=== PATIENT | female | born 1950 | race Two or more races ===

== ENCOUNTER 2017-06-01 19:26 | Emergency (ER) | payer OTHER, MEDICARE ==
[~2017-06-01] VITALS: Ht 157.5 cm; Wt 92.7 kg
[~2017-06-01 19:26] MED LIST: AMLODIPINE BESYL5 MG PO; ARNUITY ELLIP100 MCG IH; ATENOLOL50 MG PO; AUGMENTIN875 MG PO; BUMETANIDE1 MG PO; CRESTOR20 MG PO; DIOVAN320 MG PO; GEMFIBROZIL600 MG PO; IMDUR120 MG PO; LEXAPRO20 MG PO; METFORMIN HCL1000 MG PO; MEVACOR20 MG PO; NITROSTAT0.4 MG SL; NOVOLIN N100 UNITS/ SC; PLAVIX75 MG PO; PROTONIX40 MG PO; SINGULAIR10 MG PO; SYMBICORT60 INHALAT IH; TIROSINT112 MCG PO; ZETIA10 MG PO
[2017-06-01 22:44] VITALS: BP 135/70
== END 2017-06-01 22:45 | disposition home or self-care (01) ==
LOC: EME 19:26
DX: S00.03XA Contusion of scalp, initial encounter (principal); S09.90XA Unspecified injury of head, initial encounter; W07.XXXA Fall from chair, initial encounter; Z79.82 Long term (current) use of aspirin; Z79.01 Long term (current) use of anticoagulants; E11.9 Type 2 diabetes mellitus without complications; Z79.84 Long term (current) use of oral hypoglycemic drugs; I10 Essential (primary) hypertension
CPT/HCPCS: 70450; 99281; 99284

== ENCOUNTER → 2017-06-12 | Outpatient (CLI) | payer OTHER, MEDICARE | END | disposition home or self-care (01) | LOC: NUC 10:00 | DX: Z96.653 Presence of artificial knee joint, bilateral (principal); R93.7 Abnormal findings on diagnostic imaging of other parts of musculoskeletal system | CPT/HCPCS: 78315; A9503 ==

== ENCOUNTER 2017-11-20 20:09 | Inpatient (IN) | payer OTHER, MEDICARE ==
[~2017-11-20] VITALS: Ht 157.5 cm; Wt 93.7 kg
[2017-11-20 21:51] LABS: BASOPHIL (%) 0.9 % (0-1); BASOPHIL COUNT 0.1 K/uL (0-0.1); EOSINOPHIL COUNT 0.5 K/uL (0-0.3); HEMATOCRIT 36.3 % (36.0-46.0); HEMOGLOBIN 12.2 G/DL (11.9-15.5); IMMATURE GRANULOCYTE (%) 0.6 % (0.0-0.7); LYMPHOCYTE (%) 21.3 % (15-42); LYMPHOCYTE COUNT 1.9 K/uL (1.0-2.8); MCH 27.7 PG (29.0-34.0); MCHC 33.6 G/DL (30.0-36.0); MCV 82.5 FL (83-99); MONOCYTE (%) 9.8 % (3-12); MONOCYTE COUNT 0.9 K/uL (0-0.8); NEUTROPHIL (%) 62.4 % (45-76); NEUTROPHIL COUNT 5.6 K/uL (1.8-6.4); PLATELET COUNT 341 K/uL (156-360); RBC DIS.WIDTH-CV 15.6 % (11.8-14.6); RBC DIS.WIDTH-SD 46.1 % (39-53); WHITE BLOOD COUNT 8.9 K/uL (4.1-10.2)
[2017-11-20] MEDS ORDERED: CRESTOR20 MG PO (21:54)
[2017-11-20] MEDS ORDERED: BUMEX1 MG PO (21:55)
[2017-11-20] MEDS ORDERED: DIOVAN320 MG PO (21:55)
[2017-11-20] MEDS ORDERED: NORVASC10 MG PO (21:55)
[2017-11-20] MEDS ORDERED: LEXAPRO20 MG PO (21:55)
[2017-11-20] MEDS ORDERED: GLUCOPHAGE1000 MG PO (21:56)
[2017-11-20] MEDS ORDERED: PLAVIX75 MG PO (21:56)
[2017-11-20] MEDS ORDERED: PROTONIX40 MG PO (21:56)
[2017-11-20] MEDS ORDERED: ASPIR 8181 M1 PO (21:56)
[2017-11-20] MEDS ORDERED: LEVO-T88 MCG PO (21:57)
[2017-11-20] MEDS ORDERED: LOPID600 MG PO (21:57)
[2017-11-20] MEDS ORDERED: IMDUR60 MG PO (21:57)
[2017-11-20] MEDS ORDERED: VITAMIN D32000 UNI1 PO (21:58)
[2017-11-20] MEDS ORDERED: SINGULAIR10 MG PO (21:58)
[2017-11-20] MEDS ORDERED: ZYLOPRIM300 MG PO (21:58)
[2017-11-20] MEDS ORDERED: COLCRYS0.6 MG PO (21:58)
[2017-11-20] MEDS ORDERED: COENZYME Q10100 M1 PO (21:59)
[2017-11-20] MEDS ORDERED: FOLIC ACID0.4 MG PO (21:59)
[2017-11-20] MEDS ORDERED: NOVOLOG PE100 UNITS/ SC (22:00)
[2017-11-20] MEDS ORDERED: DOMP10T PO (22:00)
[2017-11-20] MEDS ORDERED: TOUJEO SOL300 UNIT/1 SC (22:00)
[2017-11-20] MEDS ORDERED: NITROSTAT0.4 MG SL (22:01)
[2017-11-20] MEDS ORDERED: FLONASE16 G1 BOTH NARES (22:01)
[2017-11-20] MEDS ORDERED: PROAIR HFA8.5 GM IH (22:01)
[2017-11-20] MEDS ORDERED: TAMIFLU75 MG PO (22:02)
[2017-11-20] MEDS ORDERED: ADVIL200 MG PO (22:02)
[2017-11-20 22:04] LABS: CHLORIDE 105 mEq/L (99-109); POTASSIUM 3.8 mEq/L (3.7-5.4); SODIUM 141 mEq/L (136-147)
[2017-11-20] MEDS ORDERED: VALTREX1000 MG PO (22:04)
[2017-11-20] MEDS ORDERED: MAGIC MOUTHWASH MM (22:04)
[2017-11-20 22:06] LABS: GLUCOSE 88 mg/dL (70-99)
[2017-11-20 22:10] LABS: CREATININE 1.1 mg/dL (0.6-1.3); GFR ESTIMATE (CALCULATED) 53 mL/min/
[2017-11-20 22:11] LABS: UREA NITROGEN (BUN) 15 mg/dL (9-23)
[2017-11-20 22:23] LABS: ERTH.SED.RATE 64 MM/HR (0-30)
[2017-11-21 05:39] VITALS: BP 170/96
[2017-11-21 05:45] LABS: CHLORIDE 106 MEQ/L (99-109); CREATININE 0.9 MG/DL (0.6-1.3); GFR ESTIMATE (CALCULATED) > 59 mL/min/; POTASSIUM 4.2 MEQ/L (3.7-5.4); SODIUM 139 MEQ/L (136-147); UREA NITROGEN (BUN) 14 mg/dL (9-23)
[2017-11-21 05:47] LABS: GLUCOSE 143 mg/dL (70-99)
[2017-11-21 08:39] VITALS: BP 186/87
[2017-11-21 12:10] VITALS: BP 178/81
[2017-11-21 17:44] VITALS: BP 184/83
[2017-11-21 19:12] VITALS: BP 182/84
[2017-11-21 23:50] VITALS: BP 196/93
[2017-11-22] VITALS (10 sets, daily range): BP systolic 149–204; BP diastolic 65–93
[2017-11-22 05:27] LABS: BASOPHIL (%) 0.8 % (0-1); BASOPHIL COUNT 0.1 K/uL (0-0.1); EOSINOPHIL (%) 0 % (0-5); HEMATOCRIT 35.2 % (36.0-46.0); HEMOGLOBIN 11.4 G/DL (11.9-15.5); IMMATURE GRANULOCYTE (%) 0.5 % (0.0-0.7); LYMPHOCYTE COUNT 1.5 K/uL (1.0-2.8); MCH 26.8 PG (29.0-34.0); MCHC 32.4 G/DL (30.0-36.0); MCV 82.6 FL (83-99); MONOCYTE (%) 6.3 % (3-12); MONOCYTE COUNT 0.6 K/uL (0-0.8); NEUTROPHIL (%) 77.4 % (45-76); NEUTROPHIL COUNT 7.8 K/uL (1.8-6.4); PLATELET COUNT 377 K/uL (156-360); RED BLOOD COUNT 4.26 M/uL (3.80-5.20); WHITE BLOOD COUNT 10.1 K/uL (4.1-10.2)
[2017-11-22 05:55] LABS: ALBUMIN 3.9 G/DL (3.2-4.8); ALKALINE PHOSPHATASE 78 IU/L (3-129); ALT (GPT) 22 IU/L (3-49); AST (GOT) 27 IU/L (2-34); CHLORIDE 107 MEQ/L (99-109); CREATININE 0.9 MG/DL (0.6-1.3); GFR ESTIMATE (CALCULATED) > 59 mL/min/; GLUCOSE 163 mg/dL (70-99); MAGNESIUM 1.5 mg/dl (1.3-2.7); SODIUM 143 MEQ/L (136-147); TOTAL BILIRUBIN 0.5 MG/DL (0.0-1.0); TOTAL PROTEIN 6.6 G/DL (6.4-8.3); UREA NITROGEN (BUN) 15 mg/dL (9-23)
[2017-11-22 16:14] LABS: BASOPHIL (%) 1.1 % (0-1); BASOPHIL COUNT 0.1 K/uL (0-0.1); EOSINOPHIL (%) 0.5 % (0-5); EOSINOPHIL COUNT 0.1 K/uL (0-0.3); HEMATOCRIT 36.1 % (36.0-46.0); IMMATURE GRANULOCYTE (%) 0.5 % (0.0-0.7); LYMPHOCYTE COUNT 1.4 K/uL (1.0-2.8); MCH 27.3 PG (29.0-34.0); MCHC 33.2 G/DL (30.0-36.0); MONOCYTE (%) 15.1 % (3-12); MONOCYTE COUNT 1.6 K/uL (0-0.8); NEUTROPHIL (%) 69.8 % (45-76); NEUTROPHIL COUNT 7.3 K/uL (1.8-6.4); PLATELET COUNT 398 K/uL (156-360); RBC DIS.WIDTH-CV 15.1 % (11.8-14.6); RBC DIS.WIDTH-SD 45.4 % (39-53); WHITE BLOOD COUNT 10.4 K/uL (4.1-10.2)
[2017-11-22 16:26] LABS: CHLORIDE 108 MEQ/L (99-109); POTASSIUM 3.2 MEQ/L (3.7-5.4); SODIUM 144 MEQ/L (136-147); TOTAL BILIRUBIN 0.6 MG/DL (0.0-1.0)
[2017-11-22 16:35] LABS: ALKALINE PHOSPHATASE 82 IU/L (3-129); ALT (GPT) 23 IU/L (3-49); AST (GOT) 26 IU/L (2-34); CREATININE 0.9 MG/DL (0.6-1.3); GFR ESTIMATE (CALCULATED) > 59 mL/min/; GLUCOSE 144 mg/dL (70-99); TOTAL PROTEIN 7.2 G/DL (6.4-8.3); UREA NITROGEN (BUN) 15 mg/dL (9-23)
[2017-11-23] VITALS (9 sets, daily range): BP systolic 140–202; BP diastolic 66–92
[2017-11-23 05:22] LABS: HEMATOCRIT 33.4 % (36.0-46.0); HEMOGLOBIN 10.8 G/DL (11.9-15.5); MCH 26.9 PG (29.0-34.0); MCHC 32.3 G/DL (30.0-36.0); MCV 83.3 FL (83-99); PLATELET COUNT 376 K/uL (156-360); RBC DIS.WIDTH-CV 15.4 % (11.8-14.6); RBC DIS.WIDTH-SD 46.9 % (39-53); RED BLOOD COUNT 4.01 M/uL (3.80-5.20); WHITE BLOOD COUNT 8.1 K/uL (4.1-10.2)
[2017-11-23 05:59] LABS: CHLORIDE 114 MEQ/L (99-109); CREATININE 0.8 MG/DL (0.6-1.3); GFR ESTIMATE (CALCULATED) > 59 mL/min/; GLUCOSE 156 mg/dL (70-99); MAGNESIUM 1.5 mg/dl (1.3-2.7); SODIUM 147 MEQ/L (136-147); UREA NITROGEN (BUN) 14 mg/dL (9-23)
[2017-11-23 06:00] LABS: POTASSIUM 4.3 MEQ/L (3.7-5.4)
[2017-11-24] VITALS (8 sets, daily range): BP systolic 129–191; BP diastolic 61–82
[2017-11-24 05:18] LABS: BASOPHIL (%) 1.8 % (0-1); BASOPHIL COUNT 0.2 K/uL (0-0.1); EOSINOPHIL (%) 6.9 % (0-5); EOSINOPHIL COUNT 0.6 K/uL (0-0.3); HEMATOCRIT 33.9 % (36.0-46.0); IMMATURE GRANULOCYTE (%) 0.6 % (0.0-0.7); LYMPHOCYTE (%) 19.5 % (15-42); LYMPHOCYTE COUNT 1.6 K/uL (1.0-2.8); MCHC 32.4 G/DL (30.0-36.0); MCV 83.3 FL (83-99); MONOCYTE (%) 14.9 % (3-12); MONOCYTE COUNT 1.2 K/uL (0-0.8); NEUTROPHIL (%) 56.3 % (45-76); NEUTROPHIL COUNT 4.7 K/uL (1.8-6.4); PLATELET COUNT 364 K/uL (156-360); RBC DIS.WIDTH-SD 48.2 % (39-53); RED BLOOD COUNT 4.07 M/uL (3.80-5.20); WHITE BLOOD COUNT 8.3 K/uL (4.1-10.2)
[2017-11-24 05:59] LABS: ALBUMIN 3.5 G/DL (3.2-4.8); ALKALINE PHOSPHATASE 74 IU/L (3-129); ALT (GPT) 27 IU/L (3-49); AST (GOT) 23 IU/L (2-34); CHLORIDE 110 MEQ/L (99-109); CREATININE 0.8 MG/DL (0.6-1.3); GFR ESTIMATE (CALCULATED) > 59 mL/min/; GLUCOSE 232 mg/dL (70-99); MAGNESIUM 1.6 mg/dl (1.3-2.7); PHOSPHORUS 2.8 mg/dL (2.5-4.9); SODIUM 145 MEQ/L (136-147); UREA NITROGEN (BUN) 13 mg/dL (9-23)
[2017-11-24 06:00] LABS: TOTAL BILIRUBIN 0.4 MG/DL (0.0-1.0); TOTAL PROTEIN 5.9 G/DL (6.4-8.3)
[2017-11-24 06:47] LABS: APPEARANCE CLEAR ((CLEAR)); BILIRUBIN NEGATIVE; BLOOD NEGATIVE; COLOR YELLOW ((YELLOW)); GLUCOSE (STRIP) 50; KETONES 5; LEUKOCYTES NEGATIVE; NITRITE NEGATIVE; PROTEIN (STRIP) NEGATIVE; SPECIFIC GRAVITY 1.013 (1.000-1.030); UCUL ADDED? NO; UROBILINOGEN 0.2 MG/DL (0.2-1.0)
[2017-11-25] VITALS (7 sets, daily range): BP systolic 129–173; BP diastolic 62–88
[2017-11-25 06:08] LABS: BASOPHIL (%) 0.8 % (0-1); BASOPHIL COUNT 0.1 K/uL (0-0.1); EOSINOPHIL (%) 13.9 % (0-5); EOSINOPHIL COUNT 1.1 K/uL (0-0.3); HEMATOCRIT 33.9 % (36.0-46.0); HEMOGLOBIN 11.1 G/DL (11.9-15.5); IMMATURE GRANULOCYTE (%) 1.1 % (0.0-0.7); LYMPHOCYTE (%) 19.6 % (15-42); LYMPHOCYTE COUNT 1.6 K/uL (1.0-2.8); MCH 27.7 PG (29.0-34.0); MCHC 32.7 G/DL (30.0-36.0); MCV 84.5 FL (83-99); MONOCYTE COUNT 0.6 K/uL (0-0.8); NEUTROPHIL (%) 56.6 % (45-76); NEUTROPHIL COUNT 4.5 K/uL (1.8-6.4); NRBC (%) 0.3 /100 WBC (0-0); PLATELET COUNT 392 K/uL (156-360); RBC DIS.WIDTH-CV 16.7 % (11.8-14.6); RBC DIS.WIDTH-SD 51.1 % (39-53); RED BLOOD COUNT 4.01 M/uL (3.80-5.20); WHITE BLOOD COUNT 7.9 K/uL (4.1-10.2)
[2017-11-25 06:37] LABS: ALBUMIN 3.1 G/DL (3.2-4.8); ALKALINE PHOSPHATASE 77 IU/L (3-129); ALT (GPT) 21 IU/L (3-49); AST (GOT) 14 IU/L (2-34); CHLORIDE 111 MEQ/L (99-109); GFR ESTIMATE (CALCULATED) 59 mL/min/; GLUCOSE 267 mg/dL (70-99); MAGNESIUM 1.8 mg/dl (1.3-2.7); POTASSIUM 4.2 MEQ/L (3.7-5.4); SODIUM 142 MEQ/L (136-147); TOTAL PROTEIN 5.3 G/DL (6.4-8.3)
[2017-11-25 06:45] LABS: TOTAL BILIRUBIN 0.3 MG/DL (0.0-1.0); UREA NITROGEN (BUN) 21 mg/dL (9-23)
[2017-11-26] VITALS (9 sets, daily range): BP systolic 98–180; BP diastolic 53–103
[2017-11-26 05:36] LABS: HEMATOCRIT 35.6 % (36.0-46.0); HEMOGLOBIN 11.8 G/DL (11.9-15.5); MCH 27.9 PG (29.0-34.0); MCHC 33.1 G/DL (30.0-36.0); MCV 84.2 FL (83-99); PLATELET COUNT 418 K/uL (156-360); RBC DIS.WIDTH-CV 17.1 % (11.8-14.6); RBC DIS.WIDTH-SD 52.2 % (39-53); RED BLOOD COUNT 4.23 M/uL (3.80-5.20); WHITE BLOOD COUNT 10.9 K/uL (4.1-10.2)
[2017-11-26 05:59] LABS: ALBUMIN 2.6 G/DL (3.2-4.8); ALKALINE PHOSPHATASE 77 IU/L (3-129); ALT (GPT) 16 IU/L (3-49); AST (GOT) 10 IU/L (2-34); CHLORIDE 109 MEQ/L (99-109); CREATININE 1.3 MG/DL (0.6-1.3); GFR ESTIMATE (CALCULATED) 43 mL/min/; GLUCOSE 379 mg/dL (70-99); MAGNESIUM 1.9 mg/dl (1.3-2.7); PHOSPHORUS 3.3 mg/dL (2.5-4.9); POTASSIUM 4.5 MEQ/L (3.7-5.4); SODIUM 138 MEQ/L (136-147); UREA NITROGEN (BUN) 30 mg/dL (9-23)
[2017-11-26 06:04] LABS: TOTAL BILIRUBIN 0.2 MG/DL (0.0-1.0); TOTAL PROTEIN 4.5 G/DL (6.4-8.3)
[2017-11-26 06:34] LABS: BASOPHIL (%) 0.3 % (0-1); EOSINOPHIL (%) 8.4 % (0-5); EOSINOPHIL COUNT 0.9 K/uL (0-0.3); HEMATOLOGY COMMENT 1 SN; IMMATURE GRANULOCYTE (%) 1.2 % (0.0-0.7); LYMPHOCYTE (%) 17.7 % (15-42); LYMPHOCYTE COUNT 1.9 K/uL (1.0-2.8); MONOCYTE (%) 6.4 % (3-12); MONOCYTE COUNT 0.7 K/uL (0-0.8); NEUTROPHIL COUNT 7.2 K/uL (1.8-6.4)
[2017-11-27] VITALS (18 sets, daily range): BP systolic 103–191; BP diastolic 45–97
[2017-11-27 05:55] LABS: HEMATOCRIT 33.5 % (36.0-46.0); HEMOGLOBIN 10.8 G/DL (11.9-15.5); MCH 26.9 PG (29.0-34.0); MCHC 32.2 G/DL (30.0-36.0); MCV 83.5 FL (83-99); NRBC (%) 0.4 /100 WBC (0-0); PLATELET COUNT 426 K/uL (156-360); RBC DIS.WIDTH-CV 17.2 % (11.8-14.6); RBC DIS.WIDTH-SD 51.4 % (39-53); RED BLOOD COUNT 4.01 M/uL (3.80-5.20); WHITE BLOOD COUNT 12.5 K/uL (4.1-10.2)
[2017-11-27 06:10] LABS: CHLORIDE 107 MEQ/L (99-109); CREATININE 1.3 MG/DL (0.6-1.3); GFR ESTIMATE (CALCULATED) 43 mL/min/; GLUCOSE 287 mg/dL (70-99); PHOSPHORUS 2.4 mg/dL (2.5-4.9); POTASSIUM 4.5 MEQ/L (3.7-5.4); SODIUM 136 MEQ/L (136-147); UREA NITROGEN (BUN) 31 mg/dL (9-23)
[2017-11-27 07:19] LABS: ABS NEUTROPHIL COUNT 9.6; ANISOCYTOSIS 2+; BAND NEUTROPHILS 50.5 % (0-8.0); EOSINOPHIL ABS CT 1.5; EOSINOPHILS 11.7 % (0-5.0); LYMPHOCYTES 8.1 % (15.0-45.0); MACROCYTES 1+; METAMYELOCYTES 1.8 %; MICROCYTOSIS 3+; MONOCYTES 0.9 % (0-9.0); MYELOCYTES 0.9 %; NUCLEATED RBC'S 0.9; POIKILOCYTOSIS 2+; POLYCHROMASIA 1+; SEG.NEUTROPHILS 26.1 % (46.0-76.0)
[2017-11-28] VITALS (23 sets, daily range): BP systolic 79–159; BP diastolic 40–79
[2017-11-28 09:23] LABS: HEMATOCRIT 30.7 % (36.0-46.0); HEMOGLOBIN 9.9 G/DL (11.9-15.5); MCH 27.2 PG (29.0-34.0); MCHC 32.2 G/DL (30.0-36.0); MCV 84.3 FL (83-99); NRBC (%) 0.4 /100 WBC (0-0); PLATELET COUNT 387 K/uL (156-360); RBC DIS.WIDTH-CV 17.4 % (11.8-14.6); RBC DIS.WIDTH-SD 52.8 % (39-53); RED BLOOD COUNT 3.64 M/uL (3.80-5.20); WHITE BLOOD COUNT 16.8 K/uL (4.1-10.2)
[2017-11-28 09:50] LABS: BASOPHIL (%) 0.2 % (0-1); EOSINOPHIL (%) 9.3 % (0-5); EOSINOPHIL COUNT 1.6 K/uL (0-0.3); IMMATURE GRANULOCYTE (%) 3.7 % (0.0-0.7); MONOCYTE (%) 2.9 % (3-12); MONOCYTE COUNT 0.5 K/uL (0-0.8); NEUTROPHIL (%) 59.9 % (45-76); NEUTROPHIL COUNT 10.1 K/uL (1.8-6.4)
[2017-11-28 09:53] LABS: CHLORIDE 106 MEQ/L (99-109); CREATININE 1.1 MG/DL (0.6-1.3); GFR ESTIMATE (CALCULATED) 53 mL/min/; GLUCOSE 308 mg/dL (70-99); POTASSIUM 4.7 MEQ/L (3.7-5.4); SODIUM 133 MEQ/L (136-147); UREA NITROGEN (BUN) 32 mg/dL (9-23)
[2017-11-28 13:20] LABS: C DIFF TOXIN NEGATIVE (NEGATIVE)
[2017-11-29] VITALS (18 sets, daily range): BP systolic 120–171; BP diastolic 47–81
[2017-11-29 04:56] LABS: CHLORIDE 104 mEq/L (99-109); HEMATOCRIT 28.7 % (36.0-46.0); HEMOGLOBIN 9.7 G/DL (11.9-15.5); MCH 27.9 PG (29.0-34.0); MCHC 33.8 G/DL (30.0-36.0); MCV 82.5 FL (83-99); NRBC (%) 0.7 /100 WBC (0-0); PLATELET COUNT 371 K/uL (156-360); POTASSIUM 4.6 mEq/L (3.7-5.4); RBC DIS.WIDTH-CV 17.2 % (11.8-14.6); RBC DIS.WIDTH-SD 49.9 % (39-53); RED BLOOD COUNT 3.48 M/uL (3.80-5.20); SODIUM 134 mEq/L (136-147); WHITE BLOOD COUNT 21.4 K/uL (4.1-10.2)
[2017-11-29 04:58] LABS: GLUCOSE 269 mg/dL (70-99)
[2017-11-29 05:02] LABS: CREATININE 0.9 mg/dL (0.6-1.3); GFR ESTIMATE (CALCULATED) > 59 mL/min/
[2017-11-29 05:03] LABS: UREA NITROGEN (BUN) 28 mg/dL (9-23)
[2017-11-29 07:14] LABS: ABS NEUTROPHIL COUNT 12.3; ANISOCYTOSIS 2+; ATYPICAL LYMPHOCYTE 6.3 %; EOSINOPHIL ABS CT 2.5; EOSINOPHILS 11.6 % (0-5.0); LYMPHOCYTES 18.7 % (15.0-45.0); METAMYELOCYTES 2.2 %; MICROCYTOSIS 2+; MONOCYTES 3.6 % (0-9.0); NUCLEATED RBC'S 1.3; PLAT.SUFFICIENCY INCREASED; SMUDGE CELLS 4.9
[2017-11-29 07:18] LABS: BAND NEUTROPHILS 11.2 % (0-8.0); SEG.NEUTROPHILS 46.4 % (46.0-76.0)
[2017-11-30] VITALS (12 sets, daily range): BP systolic 128–186; BP diastolic 61–89
[2017-11-30 06:28] LABS: HEMATOCRIT 28.3 % (36.0-46.0); HEMOGLOBIN 9.3 G/DL (11.9-15.5); MCH 27.3 PG (29.0-34.0); MCHC 32.9 G/DL (30.0-36.0); NRBC (%) 0.6 /100 WBC (0-0); PLATELET COUNT 415 K/uL (156-360); RBC DIS.WIDTH-CV 17.5 % (11.8-14.6); RBC DIS.WIDTH-SD 50.6 % (39-53); RED BLOOD COUNT 3.41 M/uL (3.80-5.20); WHITE BLOOD COUNT 26.3 K/uL (4.1-10.2)
[2017-11-30 06:40] LABS: CHLORIDE 102 MEQ/L (99-109); CREATININE 0.8 MG/DL (0.6-1.3); GFR ESTIMATE (CALCULATED) > 59 mL/min/; GLUCOSE 303 mg/dL (70-99); POTASSIUM 4.8 MEQ/L (3.7-5.4); SODIUM 132 MEQ/L (136-147); UREA NITROGEN (BUN) 25 mg/dL (9-23)
[2017-11-30 06:58] LABS: ABS NEUTROPHIL COUNT 14.4; ANISOCYTOSIS 2+; ATYPICAL LYMPHOCYTE 7.1 %; BAND NEUTROPHILS 18.6 % (0-8.0); BURR CELLS 2+; EOSINOPHIL ABS CT 2.6; EOSINOPHILS 9.7 % (0-5.0); LYMPHOCYTES 27.4 % (15.0-45.0); MICROCYTOSIS 2+; MYELOCYTES 0.9 %; OVALOCYTES 1+; PLAT.SUFFICIENCY INCREASED; POIKILOCYTOSIS 2+; POLYCHROMASIA 1+; SEG.NEUTROPHILS 36.3 % (46.0-76.0); SMUDGE CELLS 3.5
[2017-12-01] VITALS (9 sets, daily range): BP systolic 128–152; BP diastolic 59–69
[2017-12-01 08:35] LABS: HEMATOCRIT 28.6 % (36.0-46.0); HEMOGLOBIN 9.5 G/DL (11.9-15.5); MCH 27.4 PG (29.0-34.0); MCHC 33.2 G/DL (30.0-36.0); MCV 82.4 FL (83-99); NRBC (%) 0.6 /100 WBC (0-0); PLATELET COUNT 398 K/uL (156-360); RBC DIS.WIDTH-CV 17.5 % (11.8-14.6); RBC DIS.WIDTH-SD 49.7 % (39-53); RED BLOOD COUNT 3.47 M/uL (3.80-5.20); WHITE BLOOD COUNT 24.8 K/uL (4.1-10.2)
[2017-12-01 08:57] LABS: CHLORIDE 104 MEQ/L (99-109); CREATININE 0.8 MG/DL (0.6-1.3); GFR ESTIMATE (CALCULATED) > 59 mL/min/; GLUCOSE 201 mg/dL (70-99); POTASSIUM 4.6 MEQ/L (3.7-5.4); SODIUM 138 MEQ/L (136-147); UREA NITROGEN (BUN) 18 mg/dL (9-23)
[2017-12-01 12:22] LABS: HIGH-SENS C-REACTIVE PROTEIN 3.59 MG/DL (0.02-0.20)
[2017-12-02] VITALS (8 sets, daily range): BP systolic 101–157; BP diastolic 52–79
[2017-12-03 03:00] VITALS: BP 124/78
[2017-12-03 08:00] VITALS: BP 149/70
[2017-12-03 08:18] LABS: HEMOGLOBIN 8.7 G/DL (11.9-15.5); MCH 27.3 PG (29.0-34.0); MCHC 32.2 G/DL (30.0-36.0); MCV 84.6 FL (83-99); NRBC (%) 0.2 /100 WBC (0-0); PLATELET COUNT 385 K/uL (156-360); RBC DIS.WIDTH-CV 18.6 % (11.8-14.6); RBC DIS.WIDTH-SD 52.4 % (39-53); RED BLOOD COUNT 3.19 M/uL (3.80-5.20); WHITE BLOOD COUNT 22.1 K/uL (4.1-10.2)
[2017-12-03 08:46] LABS: ALBUMIN 3.3 G/DL (3.2-4.8); ALKALINE PHOSPHATASE 127 IU/L (3-129); ALT (GPT) 57 IU/L (3-49); AST (GOT) 40 IU/L (2-34); CHLORIDE 104 MEQ/L (99-109); CREATININE 0.7 MG/DL (0.6-1.3); GFR ESTIMATE (CALCULATED) > 59 mL/min/; GLUCOSE 150 mg/dL (70-99); POTASSIUM 4.4 MEQ/L (3.7-5.4); SODIUM 140 MEQ/L (136-147); TOTAL BILIRUBIN 0.4 MG/DL (0.0-1.0); TOTAL PROTEIN 5.7 G/DL (6.4-8.3); UREA NITROGEN (BUN) 14 mg/dL (9-23)
[2017-12-03 08:52] LABS: ANISOCYTOSIS 1+; ATYPICAL LYMPHOCYTE 2.7 %; BAND NEUTROPHILS 1.8 % (0-8.0); LYMPHOCYTES 21.6 % (15.0-45.0); MACROCYTES 2+; MICROCYTOSIS 1+; MONOCYTES 3.6 % (0-9.0); NUCLEATED RBC'S 1.8; PLAT.SUFFICIENCY INCREASED; POLYCHROMASIA 1+; SEG.NEUTROPHILS 38.8 % (46.0-76.0)
[2017-12-03 08:54] LABS: EOSINOPHILS 31.5 % (0-5.0)
[2017-12-03 11:45] LABS: IMM.RETIC FRACTION 35.2 % (3-19); RETIC HGB EQUIVALENT 33.6 (28-36); RETICULOCYTE COUNT 5.3 % (0.5-1.8)
[2017-12-03 12:00] VITALS: BP 133/59
[2017-12-03 12:02] LABS: IRON 48 MCG/DL (35-150); TRANSFERRIN (TIBC) 142.7 mg/dL (215-380); TRANSFERRIN SATUR. 34 % (20-55)
[2017-12-03 12:13] LABS: FERRITIN 236 NG/ML (10-291)
[2017-12-03 13:00] LABS: LACTATE DEHYDROGENASE 208 IU/L (20-246)
[2017-12-03 13:07] LABS: FOLIC ACID (FOLATE) 16.2 NG/ML (5.0-22.0)
[2017-12-03 20:00] VITALS: BP 169/76
[2017-12-03 22:00] VITALS: BP 156/71
[2017-12-04] VITALS (10 sets, daily range): BP systolic 136–168; BP diastolic 64–107
[2017-12-04 04:54] LABS: ALBUMIN 3.8 g/dL (3.2-4.8); CHLORIDE 100 mEq/L (99-109); POTASSIUM 4.2 mEq/L (3.7-5.4); SODIUM 141 mEq/L (136-147)
[2017-12-04 04:56] LABS: GLUCOSE 128 mg/dL (70-99)
[2017-12-04 04:57] LABS: TOTAL PROTEIN 6.4 g/dL (6.4-8.3)
[2017-12-04 04:58] LABS: TOTAL BILIRUBIN 0.6 mg/dL (0.0-1.0)
[2017-12-04 05:00] LABS: ALKALINE PHOSPHATASE 149 IU/L (3-129); CREATININE 0.7 mg/dL (0.6-1.3); GFR ESTIMATE (CALCULATED) > 59 mL/min/
[2017-12-04 05:01] LABS: UREA NITROGEN (BUN) 12 mg/dL (9-23)
[2017-12-04 05:02] LABS: AST (GOT) 44 IU/L (2-34)
[2017-12-04 05:03] LABS: ALT (GPT) 71 IU/L (3-49)
[2017-12-04 05:05] LABS: BASOPHIL (%) 0.6 % (0-1); BASOPHIL COUNT 0.1 K/uL (0-0.1); EOSINOPHIL (%) 34.1 % (0-5); EOSINOPHIL COUNT 6.9 K/uL (0-0.3); HEMATOCRIT 28.2 % (36.0-46.0); HEMOGLOBIN 9.4 G/DL (11.9-15.5); IMMATURE GRANULOCYTE (%) 1.1 % (0.0-0.7); LYMPHOCYTE (%) 32.4 % (15-42); LYMPHOCYTE COUNT 6.6 K/uL (1.0-2.8); MCH 28.3 PG (29.0-34.0); MCHC 33.3 G/DL (30.0-36.0); MCV 84.9 FL (83-99); MONOCYTE (%) 4.6 % (3-12); MONOCYTE COUNT 0.9 K/uL (0-0.8); NEUTROPHIL (%) 27.2 % (45-76); NEUTROPHIL COUNT 5.5 K/uL (1.8-6.4); NRBC (%) 0.3 /100 WBC (0-0); PLATELET COUNT 402 K/uL (156-360); RBC DIS.WIDTH-CV 19.1 % (11.8-14.6); RED BLOOD COUNT 3.32 M/uL (3.80-5.20); WHITE BLOOD COUNT 20.3 K/uL (4.1-10.2)
[2017-12-05 04:16] VITALS: BP 158/70
[2017-12-05 06:37] LABS: BASOPHIL (%) 0.8 % (0-1); BASOPHIL COUNT 0.1 K/uL (0-0.1); EOSINOPHIL (%) 28.6 % (0-5); EOSINOPHIL COUNT 4.5 K/uL (0-0.3); HEMATOCRIT 27.1 % (36.0-46.0); HEMOGLOBIN 8.8 G/DL (11.9-15.5); IMMATURE GRANULOCYTE (%) 0.9 % (0.0-0.7); LYMPHOCYTE (%) 34.5 % (15-42); LYMPHOCYTE COUNT 5.5 K/uL (1.0-2.8); MCH 27.7 PG (29.0-34.0); MCHC 32.5 G/DL (30.0-36.0); MCV 85.2 FL (83-99); MONOCYTE (%) 5.6 % (3-12); MONOCYTE COUNT 0.9 K/uL (0-0.8); NEUTROPHIL (%) 29.6 % (45-76); NEUTROPHIL COUNT 4.7 K/uL (1.8-6.4); NRBC (%) 0.2 /100 WBC (0-0); PLATELET COUNT 370 K/uL (156-360); RBC DIS.WIDTH-SD 54.7 % (39-53); RED BLOOD COUNT 3.18 M/uL (3.80-5.20); WHITE BLOOD COUNT 15.9 K/uL (4.1-10.2)
[2017-12-05 07:02] LABS: ALBUMIN 3.6 G/DL (3.2-4.8); ALKALINE PHOSPHATASE 124 IU/L (3-129); ALT (GPT) 59 IU/L (3-49); AST (GOT) 40 IU/L (2-34); CHLORIDE 97 MEQ/L (99-109); CREATININE 0.7 MG/DL (0.6-1.3); DIRECT BILIRUBIN 0.1 mg/dL (0.0-0.3); GFR ESTIMATE (CALCULATED) > 59 mL/min/; LACTATE DEHYDROGENASE 216 IU/L (20-246); POTASSIUM 3.9 MEQ/L (3.7-5.4); SODIUM 138 MEQ/L (136-147); TOTAL PROTEIN 6.4 G/DL (6.4-8.3); UREA NITROGEN (BUN) 10 mg/dL (9-23)
[2017-12-05 07:08] LABS: GLUCOSE 202 mg/dL (70-99)
[2017-12-05 07:09] LABS: TOTAL BILIRUBIN 0.5 MG/DL (0.0-1.0)
[2017-12-05 07:37] VITALS: BP 157/73
[2017-12-05 12:54] VITALS: BP 166/71
[2017-12-05 16:08] VITALS: BP 164/72
[2017-12-05 22:42] VITALS: BP 164/71
[2017-12-06 06:30] LABS: HEMATOCRIT 26.7 % (36.0-46.0); HEMOGLOBIN 8.6 G/DL (11.9-15.5); MCH 27.5 PG (29.0-34.0); MCHC 32.2 G/DL (30.0-36.0); MCV 85.3 FL (83-99); PLATELET COUNT 347 K/uL (156-360); RBC DIS.WIDTH-CV 18.9 % (11.8-14.6); RBC DIS.WIDTH-SD 54.9 % (39-53); RED BLOOD COUNT 3.13 M/uL (3.80-5.20); WHITE BLOOD COUNT 12.5 K/uL (4.1-10.2)
[2017-12-06 07:10] VITALS: BP 164/70
[2017-12-06 07:59] LABS: BASOPHIL (%) 1.5 % (0-1); BASOPHIL COUNT 0.2 K/uL (0-0.1); EOSINOPHIL (%) 21.4 % (0-5); EOSINOPHIL COUNT 2.7 K/uL (0-0.3); LYMPHOCYTE (%) 34.1 % (15-42); LYMPHOCYTE COUNT 4.3 K/uL (1.0-2.8); MONOCYTE (%) 8.3 % (3-12); NEUTROPHIL (%) 33.7 % (45-76); NEUTROPHIL COUNT 4.2 K/uL (1.8-6.4)
[2017-12-06] MEDS ORDERED: BENADRYL25 MG PO (09:38)
[2017-12-06] MEDS ORDERED: NATURAL BALANCE15 M1 BOTH EYES (09:42)
[2017-12-06] MEDS ORDERED: SORE THROAT SP177 M1 MM (09:43)
[2017-12-06] MEDS ORDERED: FAMOTIDINE20 MG PO (09:44)
[2017-12-06] MEDS ORDERED: PREDNISOLONE AC15 ML BOTH EYES (09:45)
== END 2017-12-06 14:18 | disposition home or self-care (01) | DRG 595 ==
LOC: EME 20:09 → ENRESERV 22:27 → 4EAST 22:27 → EDOF 22:27 → ENRESERV 23:35 → 4EAST 11-21 01:20 → CANRESERV 11-26 14:30 → ENRESERV 11-26 14:30 → 4WEST 11-26 16:01 → ENRESERV 12-04 08:17 → 5EAST 12-04 11:49
PROVIDERS: Emergency Medicine; Hospitalist; Internal Medicine; Internal Medicine Critical Care Medicine; Internal Medicine Hematology & Oncology; Specialist
DX: L51.1 Stevens-Johnson syndrome (principal); T50.4X5A Adverse effect of drugs affecting uric acid metabolism, initial encounter; R65.11 Systemic inflammatory response syndrome (SIRS) of non-infectious origin with acute organ dysfunction; E87.2 Acidosis; N17.9 Acute kidney failure, unspecified; L27.0 Generalized skin eruption due to drugs and medicaments taken internally; T36.1X5A Adverse effect of cephalosporins and other beta-lactam antibiotics, initial encounter; D64.9 Anemia, unspecified; D72.1 Eosinophilia; E87.1 Hypo-osmolality and hyponatremia; R13.10 Dysphagia, unspecified; H10.9 Unspecified conjunctivitis; K13.0 Diseases of lips; N94.9 Unspecified condition associated with female genital organs and menstrual cycle; E78.5 Hyperlipidemia, unspecified; I10 Essential (primary) hypertension; I25.10 Atherosclerotic heart disease of native coronary artery without angina pectoris; E11.3293 Type 2 diabetes mellitus with mild nonproliferative diabetic retinopathy without macular edema, bilateral; E11.36 Type 2 diabetes mellitus with diabetic cataract; E11.65 Type 2 diabetes mellitus with hyperglycemia; K21.9 Gastro-esophageal reflux disease without esophagitis; M10.9 Gout, unspecified; J45.909 Unspecified asthma, uncomplicated; E03.9 Hypothyroidism, unspecified; F32.9 Major depressive disorder, single episode, unspecified; Z96.653 Presence of artificial knee joint, bilateral; E66.9 Obesity, unspecified; Z68.37 Body mass index [BMI] 37.0-37.9, adult; Z95.5 Presence of coronary angioplasty implant and graft; Z79.82 Long term (current) use of aspirin; Z79.4 Long term (current) use of insulin; Z79.02 Long term (current) use of antithrombotics/antiplatelets; Z79.51 Long term (current) use of inhaled steroids
CPT/HCPCS: 36415; 70490; 71045; 80048; 80053; 81003; 82043; 82248; 82272; 82570; 82607; 82728; 82746; 82948; 83010 90; 83036; 83540; 83605; 83615; 83735; 83970 GA; 84100; 84145 90; 84439; 84443; 84466; 84481; 85025; 85025 91; 85027; 85046; 85652; 86141; 86850; 86860; 86870; 86880; 86900; 86901; 87040; 87493; 87506; 87641; 94640; 94640 76; 97530 GO; 97530 GP; 99202; 99281; 99285; C1753; J0133; J0360; J0692; J1200; J1450; J1650; J1815; J1940; J2405; J2930; J7030; J7050; J7120; P9047; S0028; S0073